=== PATIENT | male | born 1955 | race Caucasian/White ===

== ENCOUNTER 2021-01-23 17:27 | Emergency (ER) | payer MEDICARE, OTHER ==
[2021-01-23] MEDS ORDERED: Sodium Chloride 0.9% 1000 ML 1,000 ML IV STA ×2 (18:07→20:07)
[2021-01-23] MEDS ORDERED: Sodium Chloride 0.9% 1000 ML 1,000 ML ONE ×2 (18:13→20:35)
[2021-01-23 18:22] LABS: Absolute Neutrophil Ct (ANC) 5.68 (1.4-6.9); BASOPHIL % 0.4 % (0.0-0.4); Basophil (Absolute #) 0.03 (0-0.4); Eosinophil % 0.8 % (0.00-5.0); Eosinophil (Absolute #) 0.07 (0-0.5); Hematocrit 45.1 % (42-50); Hemoglobin 15.2 gm/dl (12.5-18.0); Lymphocytes % 22.3 % (24.0-44.0); Mean Cell Volume 79.3 fl (78-100); Mean Corpuscular Hemoglobin 26.7 pg (26-32); Mean Corpuscular Hgb Concent. 33.7 g/dl (32-36); Mean Platelet Volume 10.8 fl (7.5-11.0); Monocyte (Absolute #) 0.85 (0.0-1.3); Neutrophil % 66.5 % (36.0-66.0); Platelet Count 278 K/mm3 (150-450); Red Blood Count 5.69 M/mm3 (4.1-5.6); Red Cell Distribution Width 13.4 % (11.5-14.0); White Blood Count 8.5 K/mm3 (4.0-10.5)
[2021-01-23 18:35] LABS: ALBUMIN 4.4 g/dL (3.5-5.0); ALKALINE PHOSPHATASE 128 U/L (38-126); BLOOD UREA NITROGEN 23 mg/dL (9-20); CHLORIDE 95 mmol/L (98-107); Calcium 9.9 mg/dL (8.4-10.2); Carbon Dioxide 25 mmol/L (22-30); Creatinine 1 0.85 mg/dL (0.66-1.25); EST GLOMERULAR FILTRATION RATE > 60.0 ML/MIN; MAGNESIUM 1.8 mg/dL (1.6-2.3); Potassium 5.1 mmol/L (3.5-5.1); SGOT/AST 29 U/L (17-59); SGPT/ALT 28 U/L (0-50); SODIUM 130 mmol/L (137-145); Total Protein 7.3 g/dL (6.3-8.2)
--- NOTE | 2021-01-23 19:09 | ERPHSYRPT ---
- History of Present Illness Time Seen by Provider: 01/23/21 17:50 Source: patient, family Exam Limitations: no limitations Patient Subjective Stated Complaint: pt here for high blood sugars today, he states he does not feel well. Triage Nursing Assessment: pt alert, walked in, resp easy, skin w/d/p. face mask in place, Physician History: This is a 65-year-old white male who is diabetic and has a history of hypertensi on and presents with complaint of just not feeling well for several days. He also was found to have 554 blood sugar on his Accu-Chek at home. Patient stopped his Trulicity for no reason other than he did not want to take it any longer. He took his other medications this morning. He has not taking any p.m. medications at this time. Patient has no complaints of pain. He denies nausea vomiting or diarrhea. Timing/Duration: today Severity: mild (To moderate) Associated Symptoms: weakness, No nausea, No vomiting, No abdominal pain, No shortness of breath, No chest pain, No fever Allergies/Adverse Reactions: aspirin Allergy (Verified 01/23/21 17:43) codeine Allergy (Verified 01/23/21 17:43) Penicillins Allergy (Verified 01/23/21 17:43) Home Medications: Atorvastatin Calcium [Lipitor 40Mg] 1 ea DAILY 01/23/21 [History] Clopidogrel Bisulfate 75 mg [PLAVIX 75 MG Tablet] 1 ea DAILY 01/23/21 [History] Isosorbide Mononitrate 30 mg [Imdur 30 MG] 1 ea DAILY 01/23/21 [History] Metformin HCl 850 mg [Glucophage 850 MG] 1 ea BID 01/23/21 [History] Pioglitazone 30 mg [Actos 30 MG] 1 ea DAILY 01/23/21 [History] carvediloL [Carvedilol] 1 ea DAILY 01/23/21 [History] Hx Influenza Vaccination/Date Given: Yes Hx Pneumococcal Vaccination/Date Given: Yes Immunizations Up to Date: No Travel Risk - International Travel Have you traveled outside of the country in past 3 weeks: No - Coronavirus Screening Are you exhibiting any of the following symptoms?: No Close contact with a COVID-19 positive Pt in past 14-21 Days: No - Vaccine Status Have you recieved a Covid-19 vaccination: Yes 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 - Review of Systems Constitutional: Weakness Eyes: No Symptoms Ears, Nose, & Throat: No Symptoms Respiratory: No Symptoms Cardiac: No Symptoms Abdominal/Gastrointestinal: No Symptoms Genitourinary Symptoms: No Symptoms Musculoskeletal: No Symptoms Skin: No Symptoms Neurological: No Symptoms Psychological: No Symptoms Endocrine: No Symptoms Hematologic/Lymphatic: No Symptoms Immunological/Allergic: No Symptoms All Other Systems: Reviewed and Negative - Past Medical History Pertinent Past Medical History: Yes Neurological History: Stroke Cardiac History: Coronary Artery Disease, High Cholesterol Endocrine Medical History: Diabetes Type II - Past Surgical History Past Surgical History: No - Social History Smoking Status: Never smoker Exposure to second hand smoke: No Drug Use: none Patient Lives Alone: No - Nursing Vital Signs Nursing Vital Signs: Initial Vital Signs Temperature 97.3 F 01/23/21 17:38 Pulse Rate 93 H 01/23/21 17:38 Respiratory Rate 16 01/23/21 17:38 Blood Pressure 134/97 01/23/21 17:38 O2 Sat by Pulse Oximetry 99 01/23/21 17:38 Pain Scale Pain Intensity 0 - Physical Exam General Appearance: no apparent distress, alert Eye Exam: PERRL/EOMI, eyes nml inspection Ears, Nose, Throat Exam: normal ENT inspection, moist mucous membranes Neck Exam: normal inspection, non-tender, supple, full range of motion Respiratory Exam: normal breath sounds, lungs clear, airway intact, No chest tenderness, No respiratory distress Cardiovascular Exam: regular rate/rhythm, normal heart sounds, normal peripheral pulses Gastrointestinal/Abdomen Exam: soft, normal bowel sounds, No tenderness Rectal Exam: not done Back Exam: normal inspection, normal range of motion, No CVA tenderness, No vertebral tenderness Extremity Exam: normal inspection, normal range of motion, pelvis stable Neurologic Exam: alert, oriented x 3, cooperative, inspector final assembly mechanical II-XII nml as tested, n ormal mood/affect, nml cerebellar function, nml station & gait, sensation nml Skin Exam: normal color, warm, dry Lymphatic Exam: No adenopathy SpO2 Interpretation: normal SpO2: 99 O2 Delivery: Room Air - Course Nursing assessment & vital signs reviewed: Yes EKG Interpreted by Me: RATE (78), Sinus Rhythm, NORMAL AXIS, NORMAL INTERVALS, NORMAL QRS, NORMAL ST-T, Other (No acute ischemic changes on today's EKG. No comparison EKG available.) Ordered Tests: Active Orders 24 hr Category Date Time Status EKG-ER Only STAT Care 01/23/21 18:10 Active IV Insertion STAT Care 01/23/21 18:07 Active Pulse Oximetry (ED) STAT Care 01/23/21 18:07 Active CBC W DIFF Stat Lab 01/23/21 18:07 Completed CMP Stat Lab 01/23/21 18:20 Completed Lactic Acid Urgent Lab 01/23/21 18:20 Completed MAGNESIUM Stat Lab 01/23/21 18:20 Completed POCT GLUCOSE Stat Lab 01/23/21 17:38 Completed POCT GLUCOSE Stat Lab 01/23/21 19:25 Completed POCT GLUCOSE Stat Lab 01/23/21 22:09 Completed TROPONIN Q3H Lab 01/23/21 18:20 Completed TROPONIN Q3H Lab 01/23/21 20:55 Completed TROPONIN Q3H Lab 01/24/21 00:15 Ordered TROPONIN Q3H Lab 01/24/21 03:15 Ordered TROPONIN Q3H Lab 01/24/21 06:15 Ordered UA W/RFX UR CULTURE Stat Lab 01/23/21 18:20 Completed Medication Summary Discontinued Medications Generic Name Dose Route Start Last Admin Trade Name Freq PRN Reason Stop Dose Admin Sodium Chloride 1,000 mls @ 999 mls/hr 01/23/21 18:07 01/23/21 19:22 Sodium Chloride 0.9% 1000 Ml IV 01/23/21 19:07 Infused .Q1H1M STA Infusion Sodium Chloride Confirm 01/23/21 18:13 Sodium Chloride 0.9% 1000 Ml Administered 01/23/21 18:14 Dose 1,000 mls @ ud .ROUTE .STK-MED ONE Sodium Chloride 1,000 mls @ 999 mls/hr 01/23/21 20:07 01/23/21 20:37 Sodium Chloride 0.9% 1000 Ml IV 01/23/21 21:07 999 mls/hr .Q1H1M STA Administration Sodium Chloride Confirm 01/23/21 20:35 Sodium Chloride 0.9% 1000 Ml Administered 01/23/21 20:36 Dose 1,000 mls @ ud .ROUTE .STK-MED ONE Insulin Human Regular 6 unit 01/23/21 19:27 01/23/21 21:42 Humulin R IV 01/23/21 19:28 6 unit STAT ONE Administration Insulin Human Regular Confirm 01/23/21 21:37 Humulin R Administered 01/23/21 21:38 Dose 6 unit .ROUTE .STK-MED ONE Lab/Rad Data: Laboratory Result Diagrams 01/23/21 18:07 01/23/21 18:20 Laboratory Results 01/23/21 01/23/21 01/23/21 Range/Units 22:09 20:55 19:25 WBC (4.0-10.5) K/mm3 RBC (4.1-5.6) M/mm3 Hgb (12.5-18.0) gm/dl Hct (42-50) % MCV (78-100) fl MCH (26-32) pg MCHC (32-36) g/dl RDW (11.5-14.0) % Plt Count (150-450) K/mm3 MPV (7.5-11.0) fl Gran % (36.0-66.0) % Eos # (Auto) (0-0.5) Absolute Lymphs (auto) (1.0-4.6) Absolute Monos (auto) (0.0-1.3) Lymphocytes % (24.0-44.0) % Monocytes % (0.0-12.0) % Eosinophils % (0.00-5.0) % Basophils % (0.0-0.4) % Absolute Granulocytes (1.4-6.9) Basophils # (0-0.4) Sodium (137-145) mmol/L Potassium (3.5-5.1) mmol/L Chloride (98-107) mmol/L Carbon Dioxide (22-30) mmol/L Anion Gap (5-15) MEQ/L BUN (9-20) mg/dL Creatinine (0.66-1.25) mg/dL Estimated GFR ML/MIN Glucose (74-106) mg/dL POC Glucometer 246 H 370 H (74 to 106) mg/dL Lactic Acid (0.4-2.0) Calcium (8.4-10.2) mg/dL Magnesium (1.6-2.3) mg/dL Total Bilirubin (0.2-1.3) mg/dL AST (17-59) U/L ALT (0-50) U/L Alkaline Phosphatase (38-126) U/L Troponin I < 0.012 (0.000-0.034) ng/mL Serum Total Protein (6.3-8.2) g/dL Albumin (3.5-5.0) g/dL Urine Color (YELLOW) Urine Appearance (CLEAR) Urine pH (5-6) Ur Specific Oracle (1.005-1.025) Urine Protein (Negative) Urine Ketones (NEGATIVE) Urine Blood (0-5) Raphael/ul Urine Nitrite (NEGATIVE) Urine Bilirubin (NEGATIVE) Urine Urobilinogen (0-1) mg/dL Ur Leukocyte Esterase (NEGATIVE) Urine WBC (Auto) (0-5) /HPF Urine RBC (Auto) (0-2) /HPF U Epithel Cells (Auto) (FEW) /HPF Urine Bacteria (Auto) (NEGATIVE) /HPF Urine Culture Reflexed (NO) Urine Glucose (NEGATIVE) mg/dL 01/23/21 01/23/21 01/23/21 Range/Units 18:20 18:20 18:20 WBC (4.0-10.5) K/mm3 RBC (4.1-5.6) M/mm3 Hgb (12.5-18.0) gm/dl Hct (42-50) % MCV (78-100) fl MCH (26-32) pg MCHC (32-36) g/dl RDW (11.5-14.0) % Plt Count (150-450) K/mm3 MPV (7.5-11.0) fl Gran % (36.0-66.0) % Eos # (Auto) (0-0.5) Absolute Lymphs (auto) (1.0-4.6) Absolute Monos (auto) (0.0-1.3) Lymphocytes % (24.0-44.0) % Monocytes % (0.0-12.0) % Eosinophils % (0.00-5.0) % Basophils % (0.0-0.4) % Absolute Granulocytes (1.4-6.9) Basophils # (0-0.4) Sodium (137-145) mmol/L Potassium (3.5-5.1) mmol/L Chloride (98-107) mmol/L Carbon Dioxide (22-30) mmol/L Anion Gap (5-15) MEQ/L BUN (9-20) mg/dL Creatinine (0.66-1.25) mg/dL Estimated GFR ML/MIN Glucose (74-106) mg/dL POC Glucometer (74 to 106) mg/dL Lactic Acid 1.6 (0.4-2.0) Calcium (8.4-10.2) mg/dL Magnesium (1.6-2.3) mg/dL Total Bilirubin (0.2-1.3) mg/dL AST (17-59) U/L ALT (0-50) U/L Alkaline Phosphatase (38-126) U/L Troponin I < 0.012 (0.000-0.034) ng/mL Serum Total Protein (6.3-8.2) g/dL Albumin (3.5-5.0) g/dL Urine Color STRAW (YELLOW) Urine Appearance CLEAR (CLEAR) Urine pH 5.0 (5-6) Ur Specific Oracle 1.029 (1.005-1.025) Urine Protein NEGATIVE (Negative) Urine Ketones TRACE (NEGATIVE) Urine Blood NEGATIVE (0-5) Raphael/ul Urine Nitrite NEGATIVE (NEGATIVE) Urine Bilirubin NEGATIVE (NEGATIVE) Urine Urobilinogen NEGATIVE (0-1) mg/dL Ur Leukocyte Esterase NEGATIVE (NEGATIVE) Urine WBC (Auto) NONE (0-5) /HPF Urine RBC (Auto) NONE (0-2) /HPF U Epithel Cells (Auto) NONE (FEW) /HPF Urine Bacteria (Auto) NONE (NEGATIVE) /HPF Urine Culture Reflexed NO (NO) Urine Glucose >=500 (NEGATIVE) mg/dL 01/23/21 01/23/21 01/23/21 Range/Units 18:20 18:07 17:38 WBC 8.5 (4.0-10.5) K/mm3 RBC 5.69 H (4.1-5.6) M/mm3 Hgb 15.2 (12.5-18.0) gm/dl Hct 45.1 (42-50) % MCV 79.3 (78-100) fl MCH 26.7 (26-32) pg MCHC 33.7 (32-36) g/dl RDW 13.4 (11.5-14.0) % Plt Count 278 (150-450) K/mm3 MPV 10.8 (7.5-11.0) fl Gran % 66.5 H (36.0-66.0) % Eos # (Auto) 0.07 (0-0.5) Absolute Lymphs (auto) 1.90 (1.0-4.6) Absolute Monos (auto) 0.85 (0.0-1.3) Lymphocytes % 22.3 L (24.0-44.0) % Monocytes % 10.0 (0.0-12.0) % Eosinophils % 0.8 (0.00-5.0) % Basophils % 0.4 (0.0-0.4) % Absolute Granulocytes 5.68 (1.4-6.9) Basophils # 0.03 (0-0.4) Sodium 130 L (137-145) mmol/L Potassium 5.1 (3.5-5.1) mmol/L Chloride 95 L (98-107) mmol/L Carbon Dioxide 25 (22-30) mmol/L Anion Gap 15.0 (5-15) MEQ/L BUN 23 H (9-20) mg/dL Creatinine 0.85 (0.66-1.25) mg/dL Estimated GFR > 60.0 ML/MIN Glucose 512 H* (74-106) mg/dL POC Glucometer 464 H (74 to 106) mg/dL Lactic Acid (0.4-2.0) Calcium 9.9 (8.4-10.2) mg/dL Magnesium 1.8 (1.6-2.3) mg/dL Total Bilirubin 0.70 (0.2-1.3) mg/dL AST 29 (17-59) U/L ALT 28 (0-50) U/L Alkaline Phosphatase 128 H (38-126) U/L Troponin I (0.000-0.034) ng/mL Serum Total Protein 7.3 (6.3-8.2) g/dL Albumin 4.4 (3.5-5.0) g/dL Urine Color (YELLOW) Urine Appearance (CLEAR) Urine pH (5-6) Ur Specific Oracle (1.005-1.025) Urine Protein (Negative) Urine Ketones (NEGATIVE) Urine Blood (0-5) Raphael/ul Urine Nitrite (NEGATIVE) Urine Bilirubin (NEGATIVE) Urine Urobilinogen (0-1) mg/dL Ur Leukocyte Esterase (NEGATIVE) Urine WBC (Auto) (0-5) /HPF Urine RBC (Auto) (0-2) /HPF U Epithel Cells (Auto) (FEW) /HPF Urine Bacteria (Auto) (NEGATIVE) /HPF Urine Culture Reflexed (NO) Urine Glucose (NEGATIVE) mg/dL - Progress Progress: improved, re-examined Progress Note: 01/23/21 20:52 Patient reexamined. He is feeling better with the IV fluids. We are awaiting his urinalysis. Patient desires to go home. He has no chest pain. He has no shortness of breath. We will recheck his blood sugar prior to his discharge to home. 01/23/21 22:03 Medical decision making: This patient is feeling well. He desires to go home. We will repeat the Accu-Chek to make sure that is blood sugars in the 200-300 range. If that is the case and he is still feeling well. We will discharge him to home. 01/23/21 22:24 Accu-Chek is 246. This is in a reasonable range for discharge to home. Patient desires to go home. He has no chest pain. He has no shortness of breath. He has no abdominal pain. Counseled pt/family regarding: lab results, diagnosis, need for follow-up - Departure Departure Disposition: Home Clinical Impression: Hyperglycemia Condition: Stable Critical Care Time: No Referrals: KENNA CAMERON MD [Primary Care Provider] - Additional Instructions: Drink plenty of fluids monitor your blood sugar closely and provide yourself with insulin coverage as directed by your outpatient physician. Follow-up with your primary care physician on 01/26/2021 for further management. Return to the emergency department if you have symptoms or your blood sugar is significantly elevated.
[2021-01-23 19:19] LABS: Glucose 512 mg/dL (74-106)
[2021-01-23] MEDS ORDERED: HUMULIN R IV ONE (19:27)
[2021-01-23 21:15] LABS: Appearance CLEAR (CLEAR); Bilirubin NEGATIVE (NEGATIVE); Blood NEGATIVE Ery/ul (0-5); Glucose >=500 mg/dL (NEGATIVE); Ketones TRACE (NEGATIVE); Leukocyte Esterase NEGATIVE (NEGATIVE); Nitrite NEGATIVE (NEGATIVE); Protein,Urine Dip NEGATIVE (Negative); Specific Gravity 1.029 (1.005-1.025); Urobilinogen NEGATIVE mg/dL (0-1)
[2021-01-23] MEDS ORDERED: HUMULIN R ONE (21:37)
[2021-01-23 22:57] VITALS: BP 131/85; PULSE 77; O2SAT 98
== END 2021-01-23 22:57 | disposition home or self-care (01) ==
LOC: ED 17:27
DX: E11.65 Type 2 diabetes mellitus with hyperglycemia (principal); I25.10 Atherosclerotic heart disease of native coronary artery without angina pectoris; E78.00 Pure hypercholesterolemia, unspecified; Z79.899 Other long term (current) drug therapy
CPT/HCPCS: 36000; 36415; 80053; 81001; 82947; 83605; 83735; 84484; 85025; 93005; 94760; 96360; 96361; 96374; 99284; J1815

== ENCOUNTER 2021-05-04 11:11 | Observation (INO) | payer MEDICARE ==
[2021-05-04] MEDS ORDERED: Sodium Chloride 0.9% 1000 ML 1,000 ML IV SCH ×3 (11:45→14:00)
--- NOTE | 2021-05-04 11:59 | ERPHSYRPT ---
- History of Present Illness Time Seen by Provider: 05/04/21 11:22 Source: patient Patient Subjective Stated Complaint: spouse reports reduced mental status beginning yesterday approx 0600, states that pt was in the bathroom and did not know what he was doing there and also did not know who his was at that point, states pt was also having increased difficulty walking at that time as well. also reports that pt has recently been tested for covid ( 3wks ago) and treated for URI with Doxycycline. Triage Nursing Assessment: pt is aox3, pupils perrl, afebrile, resps easy and non labored, cap refill < 3 seconds, radial pulses strong and equal, pt with generalized weakness, hand web machine tender strong equal, foot pushes strong equal, no drift noted to upper or lower extremities, face is symmetrical, pt skin pink warm dry. Physician History: Patient is a 65-year-old male presents to our ED with his for evaluation of change in mental status. states symptoms started yesterday approximately 6 AM. She noticed patient was confused and had an abnormal gait. However she felt that this will run its course. states symptoms continued on into today. Patient denies symptoms. No trauma. No fever. He is currently alert and oriented x4. Patient is a diabetic. states that patient has not been compliant with his medications. No nausea or vomiting. No diarrhea. No rash. Patient has a history of a CVA. concerned that patient may have had another CVA. They voiced no other complaints or concerns at this time. Timing/Duration: yesterday Severity: moderate Modifying Factors: Improves With: nothing Associated Symptoms: No nausea, No vomiting, No abdominal pain, No shortness of breath, No diaphoresis, No cough, No chills, No chest pain, No fever, No headaches, No loss of appetite, No malaise, No syncope, No seizure, No weakness Allergies/Adverse Reactions: aspirin Allergy (Verified 05/04/21 11:31) codeine Allergy (Verified 05/04/21 11:31) Penicillins Allergy (Verified 05/04/21 11:31) Home Medications: Atorvastatin Calcium [Lipitor 40Mg] 1 ea DAILY 01/23/21 [History] Clopidogrel Bisulfate 75 mg [PLAVIX 75 MG Tablet] 1 ea DAILY 01/23/21 [History] Isosorbide Mononitrate 30 mg [Imdur 30 MG] 1 ea DAILY 01/23/21 [History] Metformin HCl 850 mg [Glucophage 850 MG] 1 ea BID 01/23/21 [History] Pioglitazone 30 mg [Actos 30 MG] 1 ea DAILY 01/23/21 [History] carvediloL [Carvedilol] 1 ea DAILY 01/23/21 [History] Hx Tetanus, Diphtheria Vaccination/Date Given: Yes Hx Influenza Vaccination/Date Given: Yes Hx Pneumococcal Vaccination/Date Given: Yes Immunizations Up to Date: Yes Travel Risk - International Travel Have you traveled outside of the country in past 3 weeks: No - Coronavirus Screening Are you exhibiting any of the following symptoms?: No Close contact with a COVID-19 positive Pt in past 14-21 Days: No - Vaccine Status Have you recieved a Covid-19 vaccination: Yes [place]: Moderna - Vaccination Dates Date of 2cond Vaccination (if applicable): Comment: approx dates - Review of Systems Constitutional: No Symptoms, No Fever, No Chills Eyes: No Symptoms Ears, Nose, & Throat: No Symptoms Respiratory: No Symptoms, No Cough, No Dyspnea Cardiac: No Symptoms, No Chest Pain, No Edema, No Syncope Abdominal/Gastrointestinal: No Symptoms, No Abdominal Pain, No Nausea, No Vomiting, No Diarrhea Genitourinary Symptoms: No Symptoms, No Dysuria Musculoskeletal: No Symptoms, No Back Pain, No Neck Pain Skin: No Symptoms, No Rash Neurological: No Symptoms, No Dizziness, No Focal Weakness, No Sensory Changes Psychological: No Symptoms Endocrine: No Symptoms Hematologic/Lymphatic: No Symptoms Immunological/Allergic: No Symptoms All Other Systems: Reviewed and Negative - Past Medical History Pertinent Past Medical History: Yes Neurological History: Stroke Cardiac History: Coronary Artery Disease, High Cholesterol Endocrine Medical History: Diabetes Type II - Past Surgical History Past Surgical History: No - Social History Smoking Status: Never smoker Exposure to second hand smoke: No Drug Use: none Patient Lives Alone: No - Nursing Vital Signs Nursing Vital Signs: Initial Vital Signs Temperature 96.9 F 05/04/21 11:17 Pulse Rate 87 05/04/21 11:17 Respiratory Rate 16 05/04/21 11:17 Blood Pressure 170/99 05/04/21 11:17 O2 Sat by Pulse Oximetry 99 05/04/21 11:17 Pain Scale Pain Intensity 0 - Physical Exam General Appearance: no apparent distress, alert Eye Exam: PERRL/EOMI, eyes nml inspection Ears, Nose, Throat Exam: normal ENT inspection, TMs normal, pharynx normal, moist mucous membranes Neck Exam: normal inspection, non-tender, supple, full range of motion Respiratory Exam: normal breath sounds, lungs clear, airway intact, No respiratory distress Cardiovascular Exam: regular rate/rhythm, normal heart sounds, normal peripheral pulses Gastrointestinal/Abdomen Exam: soft, normal bowel sounds, No tenderness, No mass, No ecchymosis Back Exam: normal inspection, normal range of motion, No CVA tenderness, No patricia tebral tenderness Extremity Exam: normal inspection, normal range of motion, pelvis stable Neurologic Exam: alert, oriented x 3, cooperative, normal mood/affect, nml cerebellar function, nml station & gait, sensation nml, No motor deficits Skin Exam: normal color, warm, dry, No rash Lymphatic Exam: No adenopathy SpO2 Interpretation: normal SpO2: 96 O2 Delivery: Room Air - Course Nursing assessment & vital signs reviewed: Yes EKG Interpreted by Me: RATE (85), Sinus Rhythm, NORMAL AXIS, NORMAL INTERVALS - CT Exams Head CT Interpretation: Tele-radiologist Report (Nonacute senile brain old infarct low-attenuation infarct adjacent to the lateral margin of the body of the left lateral ventricle consistent with cardiac nucleus infarct. Pansinusitis) Ordered Tests: Active Orders 24 hr Category Date Time Status Traffic Control Signaler STAT Care 05/04/21 11:40 Active EKG-ER Only STAT Care 05/04/21 11:39 Active IV Insertion STAT Care 05/04/21 11:39 Active POCT Glucose Check STAT Care 05/04/21 11:51 Active Pulse Oximetry (ED) STAT Care 05/04/21 11:39 Active HEAD WITHOUT CONTRAST [CT] Stat Exams 05/04/21 11:40 Completed ABG [ARTERIAL BLOOD GASES] Stat Lab 05/04/21 13:38 Ordered CBC W DIFF Stat Lab 05/04/21 11:50 Completed CMP Stat Lab 05/04/21 11:50 Completed ETHYL ALCOHOL Stat Lab 05/04/21 11:50 Completed POCT GLUCOSE Stat Lab 05/04/21 11:50 Received POCT GLUCOSE Stat Lab 05/04/21 13:38 Completed TROPONIN Q3H Lab 05/04/21 11:50 Completed TROPONIN Q3H Lab 05/04/21 14:45 Ordered TROPONIN Q3H Lab 05/04/21 17:45 Ordered TROPONIN Q3H Lab 05/04/21 20:45 Ordered TROPONIN Q3H Lab 05/04/21 23:45 Ordered TSH, 3RD Generation Stat Lab 05/04/21 11:50 Completed UA W/RFX UR CULTURE Stat Lab 05/04/21 11:50 Completed Urine Triage Profile Stat Lab 05/04/21 11:50 Completed Medication Summary Generic Name Dose Route Start Last Admin Trade Name Freq PRN Reason Stop Dose Admin Sodium Chloride 1,000 mls @ 100 mls/hr 05/04/21 11:45 05/04/21 12:55 Sodium Chloride 0.9% 1000 Ml IV 06/03/21 11:44 Infused .Q10H RAMESH Infusion Sodium Chloride 1,000 mls @ 200 mls/hr 05/04/21 13:45 Sodium Chloride 0.9% 1000 Ml IV 06/03/21 13:44 .Q5H RAMESH Sodium Chloride 1,000 mls @ 200 mls/hr 05/04/21 14:00 Sodium Chloride 0.9% 1000 Ml IV 06/03/21 13:59 .Q5H RAMESH Lab/Rad Data: Laboratory Result Diagrams 05/04/21 11:50 05/04/21 11:50 Laboratory Results 05/04/21 05/04/21 05/04/21 Range/Units 13:38 11:57 11:50 WBC (4.0-10.5) K/mm3 RBC (4.1-5.6) M/mm3 Hgb (12.5-18.0) gm/dl Hct (42-50) % MCV (78-100) fl MCH (26-32) pg MCHC (32-36) g/dl RDW (11.5-14.0) % Plt Count (150-450) K/mm3 MPV (7.5-11.0) fl Gran % (36.0-66.0) % Eos # (Auto) (0-0.5) Absolute Lymphs (auto) (1.0-4.6) Absolute Monos (auto) (0.0-1.3) Lymphocytes % (24.0-44.0) % Monocytes % (0.0-12.0) % Eosinophils % (0.00-5.0) % Basophils % (0.0-0.4) % Absolute Granulocytes (1.4-6.9) Basophils # (0-0.4) Sodium (137-145) mmol/L Potassium (3.5-5.1) mmol/L Chloride (98-107) mmol/L Carbon Dioxide (22-30) mmol/L Anion Gap (5-15) MEQ/L BUN (9-20) mg/dL Creatinine (0.66-1.25) mg/dL Estimated GFR ML/MIN Glucose (74-106) mg/dL POC Glucometer 461 H (74 to 106) mg/dL Calcium (8.4-10.2) mg/dL Total Bilirubin (0.2-1.3) mg/dL AST (17-59) U/L ALT (0-50) U/L Alkaline Phosphatase (38-126) U/L Troponin I < 0.012 (0.000-0.034) ng/mL Serum Total Protein (6.3-8.2) g/dL Albumin (3.5-5.0) g/dL TSH 3rd Generation (0.47-4.68) mIU/L Urine Color (YELLOW) Urine Appearance (CLEAR) Urine pH (5-6) Ur Specific [place] (1.005-1.025) Urine Protein (Negative) Urine Ketones (NEGATIVE) Urine Blood (0-5) Raphael/ul Urine Nitrite (NEGATIVE) Urine Bilirubin (NEGATIVE) Urine Urobilinogen (0-1) mg/dL Ur Leukocyte Esterase (NEGATIVE) Urine WBC (Auto) (0-5) /HPF Urine RBC (Auto) (0-2) /HPF Urine Culture Reflexed (NO) Urine Glucose (NEGATIVE) mg/dL Urine Opiates Level (NEGATIVE) Ur Methadone (NEGATIVE) Urine Barbiturates (NEGATIVE) Ur Phencyclidine (PCP) (NEGATIVE) Urine Amphetamine (NEGATIVE) U Benzodiazepine Level (NEGATIVE) Urine Cocaine (NEGATIVE) Urine Marijuana (THC) (NEGATIVE) Ethyl Alcohol (0-10) mg/dL Influenza Type A Ag NEGATIVE (NEGATIVE) Influenza Type B Ag NEGATIVE (NEGATIVE) RSV (PCR) NEGATIVE (Negative) SARS-CoV-2 (PCR) NEGATIVE (NEGATIVE) 05/04/21 05/04/2121 Range/Units 11:50 11:50 11:50 WBC 9.2 (4.0-10.5) K/mm3 RBC 5.48 (4.1-5.6) M/mm3 Hgb 14.2 (12.5-18.0) gm/dl Hct 43.4 (42-50) % MCV 79.2 (78-100) fl MCH 25.9 L (26-32) pg MCHC 32.7 (32-36) g/dl RDW 12.7 (11.5-14.0) % Plt Count 363 (150-450) K/mm3 MPV 9.9 (7.5-11.0) fl Gran % 68.4 H (36.0-66.0) % Eos # (Auto) 0.06 (0-0.5) Absolute Lymphs (auto) 1.94 (1.0-4.6) Absolute Monos (auto) 0.87 (0.0-1.3) Lymphocytes % 21.1 L (24.0-44.0) % Monocytes % 9.5 (0.0-12.0) % Eosinophils % 0.7 (0.00-5.0) % Basophils % 0.3 (0.0-0.4) % Absolute Granulocytes 6.28 (1.4-6.9) Basophils # 0.03 (0-0.4) Sodium 124 L (137-145) mmol/L Potassium 5.0 (3.5-5.1) mmol/L Chloride 89 L (98-107) mmol/L Carbon Dioxide 27 (22-30) mmol/L Anion Gap 12.8 (5-15) MEQ/L BUN 26 H (9-20) mg/dL Creatinine 0.78 (0.66-1.25) mg/dL Estimated GFR > 60.0 ML/MIN Glucose 658 H* (74-106) mg/dL POC Glucometer (74 to 106) mg/dL Calcium 9.2 (8.4-10.2) mg/dL Total Bilirubin 0.50 (0.2-1.3) mg/dL AST 35 (17-59) U/L ALT 29 (0-50) U/L Alkaline Phosphatase 179 H (38-126) U/L Troponin I (0.000-0.034) ng/mL Serum Total Protein 6.4 (6.3-8.2) g/dL Albumin 3.5 (3.5-5.0) g/dL TSH 3rd Generation 2.790 (0.47-4.68) mIU/L Urine Color (YELLOW) Urine Appearance (CLEAR) Urine pH (5-6) Ur Specific [place] (1.005-1.025) Urine Protein (Negative) Urine Ketones (NEGATIVE) Urine Blood (0-5) Raphael/ul Urine Nitrite (NEGATIVE) Urine Bilirubin (NEGATIVE) Urine Urobilinogen (0-1) mg/dL Ur Leukocyte Esterase (NEGATIVE) Urine WBC (Auto) (0-5) /HPF Urine RBC (Auto) (0-2) /HPF Urine Culture Reflexed (NO) Urine Glucose (NEGATIVE) mg/dL Urine Opiates Level NEGATIVE (NEGATIVE) Ur Methadone NEGATIVE (NEGATIVE) Urine Barbiturates NEGATIVE (NEGATIVE) Ur Phencyclidine (PCP) NEGATIVE (NEGATIVE) Urine Amphetamine NEGATIVE (NEGATIVE) U Benzodiazepine Level NEGATIVE (NEGATIVE) Urine Cocaine NEGATIVE (NEGATIVE) Urine Marijuana (THC) NEGATIVE (NEGATIVE) Ethyl Alcohol < 10 (0-10) mg/dL Influenza Type A Ag (NEGATIVE) Influenza Type B Ag (NEGATIVE) RSV (PCR) (Negative) SARS-CoV-2 (PCR) (NEGATIVE) 05/04/21 Range/Units 11:50 WBC (4.0-10.5) K/mm3 RBC (4.1-5.6) M/mm3 Hgb (12.5-18.0) gm/dl Hct (42-50) % MCV (78-100) fl MCH (26-32) pg MCHC (32-36) g/dl RDW (11.5-14.0) % Plt Count (150-450) K/mm3 MPV (7.5-11.0) fl Gran % (36.0-66.0) % Eos # (Auto) (0-0.5) Absolute Lymphs (auto) (1.0-4.6) Absolute Monos (auto) (0.0-1.3) Lymphocytes % (24.0-44.0) % Monocytes % (0.0-12.0) % Eosinophils % (0.00-5.0) % Basophils % (0.0-0.4) % Absolute Granulocytes (1.4-6.9) Basophils # (0-0.4) Sodium (137-145) mmol/L Potassium (3.5-5.1) mmol/L Chloride (98-107) mmol/L Carbon Dioxide (22-30) mmol/L Anion Gap (5-15) MEQ/L BUN (9-20) mg/dL Creatinine (0.66-1.25) mg/dL Estimated GFR ML/MIN Glucose (74-106) mg/dL POC Glucometer (74 to 106) mg/dL Calcium (8.4-10.2) mg/dL Total Bilirubin (0.2-1.3) mg/dL AST (17-59) U/L ALT (0-50) U/L Alkaline Phosphatase (38-126) U/L Troponin I (0.000-0.034) ng/mL Serum Total Protein (6.3-8.2) g/dL Albumin (3.5-5.0) g/dL TSH 3rd Generation (0.47-4.68) mIU/L Urine Color STRAW (YELLOW) Urine Appearance CLEAR (CLEAR) Urine pH 6.0 (5-6) Ur Specific [place] 1.028 (1.005-1.025) Urine Protein NEGATIVE (Negative) Urine Ketones TRACE (NEGATIVE) Urine Blood NEGATIVE (0-5) Raphael/ul Urine Nitrite NEGATIVE (NEGATIVE) Urine Bilirubin NEGATIVE (NEGATIVE) Urine Urobilinogen NEGATIVE (0-1) mg/dL Ur Leukocyte Esterase NEGATIVE (NEGATIVE) Urine WBC (Auto) NONE (0-5) /HPF Urine RBC (Auto) NONE (0-2) /HPF Urine Culture Reflexed NO (NO) Urine Glucose >=500 (NEGATIVE) mg/dL Urine Opiates Level (NEGATIVE) Ur Methadone (NEGATIVE) Urine Barbiturates (NEGATIVE) Ur Phencyclidine (PCP) (NEGATIVE) Urine Amphetamine (NEGATIVE) U Benzodiazepine Level (NEGATIVE) Urine Cocaine (NEGATIVE) Urine Marijuana (THC) (NEGATIVE) Ethyl Alcohol (0-10) mg/dL Influenza Type A Ag (NEGATIVE) Influenza Type B Ag (NEGATIVE) RSV (PCR) (Negative) SARS-CoV-2 (PCR) (NEGATIVE) - Progress Progress: improved Progress Note: Patient reassessed. He feels well. Work-up reveals hyperglycemia. 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 Serum osmolality ordered. Calculated serum osmolarity is 293. Adjusted serum sodium is 132. Patient received IV fluids. Glucose improved from 6 58-461 Patient will require admission for further evaluation and treatment. Plan of care discussed with patient and . They agree to admission [facility] for further evaluation and treatment. Portions of this note were created with voice recognition technology. There may be grammatical, spelling, punctuation or sound alike errors Discussed with Dr.: Kevin Will see patient in: hospital (observation) Counseled pt/family regarding: lab results, diagnosis, rad results - Departure Departure Disposition: Observation Clinical Impression: Hyperglycemia, Pansinusitis, HHNC (hyperglycemic hyperosmolar nonketotic coma) Condition: Stable Critical Care Time: No
[2021-05-04 12:03] LABS: Absolute Neutrophil Ct (ANC) 6.28 (1.4-6.9); BASOPHIL % 0.3 % (0.0-0.4); Basophil (Absolute #) 0.03 (0-0.4); Eosinophil % 0.7 % (0.00-5.0); Eosinophil (Absolute #) 0.06 (0-0.5); Hematocrit 43.4 % (42-50); Hemoglobin 14.2 gm/dl (12.5-18.0); Lymphocyte (Absolute #) 1.94 (1.0-4.6); Lymphocytes % 21.1 % (24.0-44.0); Mean Cell Volume 79.2 fl (78-100); Mean Corpuscular Hemoglobin 25.9 pg (26-32); Mean Corpuscular Hgb Concent. 32.7 g/dl (32-36); Mean Platelet Volume 9.9 fl (7.5-11.0); Monocyte (Absolute #) 0.87 (0.0-1.3); Monocytes % 9.5 % (0.0-12.0); Neutrophil % 68.4 % (36.0-66.0); Platelet Count 363 K/mm3 (150-450); Red Blood Count 5.48 M/mm3 (4.1-5.6); Red Cell Distribution Width 12.7 % (11.5-14.0); White Blood Count 9.2 K/mm3 (4.0-10.5)
[2021-05-04 12:25] LABS: Glucose 658 mg/dL (74-106)
[2021-05-04 12:43] LABS: INFLUENZA A NEGATIVE (NEGATIVE); INFLUENZA B NEGATIVE (NEGATIVE); RESPIRATORY SYNCTIAL VIRUS NEGATIVE (Negative); SARS-CoV-2 Xpert Express NEGATIVE (NEGATIVE)
[2021-05-04 12:46] LABS: ALBUMIN 3.5 g/dL (3.5-5.0); ALKALINE PHOSPHATASE 179 U/L (38-126); ANION GAP 12.8 MEQ/L (5-15); BLOOD UREA NITROGEN 26 mg/dL (9-20); CHLORIDE 89 mmol/L (98-107); Calcium 9.2 mg/dL (8.4-10.2); Carbon Dioxide 27 mmol/L (22-30); Creatinine 1 0.78 mg/dL (0.66-1.25); EST GLOMERULAR FILTRATION RATE > 60.0 ML/MIN; ETHYL ALCOHOL < 10 mg/dL (0-10); SGOT/AST 35 U/L (17-59); SGPT/ALT 29 U/L (0-50); SODIUM 124 mmol/L (137-145); Total Protein 6.4 g/dL (6.3-8.2)
[2021-05-04 13:13] LABS: Appearance CLEAR (CLEAR); Bilirubin NEGATIVE (NEGATIVE); Blood NEGATIVE Ery/ul (0-5); Glucose >=500 mg/dL (NEGATIVE); Ketones TRACE (NEGATIVE); Leukocyte Esterase NEGATIVE (NEGATIVE); Nitrite NEGATIVE (NEGATIVE); Protein,Urine Dip NEGATIVE (Negative); Specific Gravity 1.028 (1.005-1.025); Urobilinogen NEGATIVE mg/dL (0-1)
--- NOTE | 2021-05-04 13:13 | XRAY ---
Exam: CT of the head without IV contrast from 05/04/2021. CTDI: 53.92 mGy Comparison: None. Indication: 65-year-old male with altered mental status; weakness, patient states that he "hurts all over". Technique: Non-IV contrast axial images were obtained through the brain. Reconstructed coronal and sagittal images were created and reviewed. Findings: Some artifactual streaking is seen within the oral cavity due to dental amalgam. The left lateral ventricle is slightly larger than the right lateral ventricle. I note a low-attenuation density within the left caudate nucleus adjacent to the lateral margin of the body of the left lateral ventricle which is consistent with a focal infarct. This appears to be old because of the slight ipsilateral enlargement of the left lateral ventricle as compared to the right lateral ventricle. I see no acute intracranial bleed or abnormal extra-axial fluid collection. Some subtle subcortical white matter changes are seen within the upper cervical convexities suggesting minor chronic microvascular disease. No other low attenuation infarct is seen. The fourth ventricle is of unremarkable size and is midline. The cortical sulci and basilar cisterns are normal for age. The calvarium of the skull appears intact. There is significant soft tissue density/mucosal thickening within the right frontal sinus. I also note a lesser amount of mucosal thickening within the inferior left frontal sinus and left frontoethmoid recess. There is significant soft tissue density/mucosal thickening within the right ethmoid sinus, and to a lesser extent, within the left ethmoid sinus. Minor posterior sphenoid sinus mucosal thickening is seen. The right maxillary sinus is completely opacified. The left maxillary sinus reveals mild remaining aeration within the superior medial aspect. Otherwise, the remainder of the left maxillary sinus is opacified as well. These findings are suggestive of pansinusitis which could be chronic and/or acute. Impression: 1. No acute intracranial bleed is seen. 2. There is a focal 1.6 cm x 0.7 cm low attenuation infarct adjacent to the lateral margin of the body of the left lateral ventricle consistent with a caudate nucleus infarct. This is probably old, as the left lateral ventricle is slightly larger than the right lateral ventricle. 3. I also note some subtle subcortical chronic white matter ischemic changes within the upper cerebral convexities. No other low attenuation infarct is seen within a major cerebral or cerebellar artery distribution. 4. Findings consistent with pansinusitis which could be chronic and/or acute. Correlate clinically.
[2021-05-04 13:27] LABS: Amphetamine,Urine NEGATIVE (NEGATIVE); Barbiturate,Urine NEGATIVE (NEGATIVE); Benzodiazepine,Urine NEGATIVE (NEGATIVE); Cocaine,Urine NEGATIVE (NEGATIVE); Methadone,Urine NEGATIVE (NEGATIVE); Opiate,Urine NEGATIVE (NEGATIVE); PCP,Urine NEGATIVE (NEGATIVE); THC,Urine NEGATIVE (NEGATIVE)
[2021-05-04] MEDS ORDERED: Zofran 4 MG/2 ML VIAL IV PRN (14:42)
[2021-05-04 14:43] LABS: A-aADO2 -1; ABG HEMOGLOBIN 14.7; ABG POTASSIUM 4.3 (3.5-5.1); ABG SITE RIGHT RADIAL; ALLEN TEST OK? YES; ARTERIAL BLD GAS O2 SATURATION 98.1 % (95-100); ARTERIAL BLOOD GAS BASE EXCESS 2.3 (-2.0-2.0); ARTERIAL BLOOD GAS FIO2 21 %; ARTERIAL BLOOD GAS PCO2 39 mmHg (35-45); ARTERIAL BLOOD GAS PO2 102 mmHg (75-100); ARTERIAL BLOOD GAS pH 7.44 (7.35-7.45); CARBOXYHEMOGLOBIN 1.1 % THgb (0.0-6.9); HCO3- 26.5 (22-28); HGB O2 SAT 96.5 g/dF (94-100); Methhemoglobin 0.4 % (1.4-1.5)
[2021-05-04] MEDS ORDERED: HUMULIN R SQ SCH (16:30)
[2021-05-04] MEDS: HUMULIN R SQ PRN ×2 (18:06→21:01)
[2021-05-04] MEDS: Coreg 6.25 MG PO SCH (21:38)
[2021-05-04] MEDS ORDERED: ZOCOR 20MG PO SCH (22:00)
[2021-05-04] MEDS ORDERED: Glucophage 500 MG PO SCH (22:00)
[2021-05-04] MEDS: Sodium Chloride 0.9% 1000 ML 1,000 ML IV SCH (22:47)
[2021-05-05 06:14] LABS: Hematocrit 38.9 % (42-50); Hemoglobin 12.8 gm/dl (12.5-18.0); Mean Cell Volume 78.7 fl (78-100); Mean Corpuscular Hemoglobin 25.9 pg (26-32); Mean Corpuscular Hgb Concent. 32.9 g/dl (32-36); Mean Platelet Volume 9.9 fl (7.5-11.0); Platelet Count 373 K/mm3 (150-450); Red Blood Count 4.94 M/mm3 (4.1-5.6); Red Cell Distribution Width 12.8 % (11.5-14.0); White Blood Count 10.4 K/mm3 (4.0-10.5)
[2021-05-05 06:30] LABS: ALBUMIN 3.2 g/dL (3.5-5.0); ALKALINE PHOSPHATASE 124 U/L (38-126); ANION GAP 9.2 MEQ/L (5-15); BLOOD UREA NITROGEN 16 mg/dL (9-20); CHLORIDE 99 mmol/L (98-107); Calcium 8.6 mg/dL (8.4-10.2); Carbon Dioxide 27 mmol/L (22-30); Creatinine 1 0.74 mg/dL (0.66-1.25); EST GLOMERULAR FILTRATION RATE > 60.0 ML/MIN; Glucose 158 mg/dL (74-106); Potassium 3.7 mmol/L (3.5-5.1); SGOT/AST 23 U/L (17-59); SGPT/ALT 23 U/L (0-50); SODIUM 131 mmol/L (137-145); Total Protein 6.2 g/dL (6.3-8.2)
[2021-05-05 07:04] LABS: ATYPICAL LYMPHS 1 %; Eosinophil 1 % (0.00-3.0); Lymphocytes 26 % (24-44); Monocyte 6 % (0.0-12.0); Neutrophils 66 % (36.-66.); Total Cells Counted 100
[2021-05-05 07:05] LABS: Platelet Estimate NORMAL (NORMAL)
[2021-05-05] MEDS: Sodium Chloride 0.9% 1000 ML 1,000 ML IV SCH (08:00)
[2021-05-05] MEDS: Glucophage 500 MG PO SCH ×2 (08:26→17:25)
[2021-05-05] MEDS: HUMULIN R SQ SCH ×3 (08:28→17:27)
[2021-05-05] MEDS: HUMULIN R SQ PRN ×3 (08:29→17:28)
[2021-05-05] MEDS ORDERED: Actos 30 MG PO SCH (10:00)
[2021-05-05] MEDS ORDERED: Imdur 30 MG PO SCH (10:00)
[2021-05-05] MEDS ORDERED: PLAVIX 75 MG Tablet PO SCH (10:00)
[2021-05-05] MEDS: Coreg 6.25 MG PO SCH (10:27)
[2021-05-05 12:19] VITALS: O2SAT 96
--- NOTE | 2021-05-05 14:06 | PCM.DCORD ---
- Discharge Disposition: Home, Self-Care Condition: Good Prescriptions: New Insulin Regular, Human [Humulin R] See Protocol SQ UD PRN #30 unit PRN Reason: Hyperglycemia Continue carvediloL [Carvedilol] 6.25 mg PO BID Pioglitazone 30 mg [Actos 30 MG] 30 mg PO DAILY Metformin HCl 850 mg [Glucophage 850 MG] 1,000 mg PO BID Isosorbide Mononitrate 30 mg [Imdur 30 MG] 30 mg PO DAILY Clopidogrel Bisulfate 75 mg [PLAVIX 75 MG Tablet] 75 mg PO DAILY Atorvastatin Calcium [Lipitor 40Mg] 40 mg PO HS Insulin Regular, Human [Novolin R] 10 unit SQ AC Additional Instructions: OUTPATIENT TESTING [facility] - Tuesday05/11/21 at 8:45AM for testing : EEG (brain wave test) then MRI Brain no contrast NO DRIVING-patient and aware and voiced understanding Follow up with: KENNA CAMERON MD [Primary Care Provider] - 05/05/21 10:00 am
[2021-05-05 17:20] VITALS: BP 134/87; PULSE 91
--- NOTE | 2021-05-05 18:39 | PCM.SSS ---
History of Present Illness - Chief Complaint Chief Complaint: hyperglycemia, HHN, AMS History of Present Illness: is a 65 year old male patient of Dr Kenna Carolina of [place], [place]. who Presented to ER with AMS and glucose 658,sodium= 124. PMHx IDDM2,CAD,Hx CVA ,is on Plavix. States he had right sided weakness at time of CVA but all has resolved. states patient has hasd spells of confusion/ dioriented even had urinated in the closet. When spell passes ,he is oriented and appropriate again. Patient states he used to see Dr Cheryl Rees for DM but stopped seeing her when she served icecream and chocolates at a celebration meeting. He stopped taking his meds because when he sees the PHYSICIAN ASST she tells him one thing and then Dr Carolina tells him something else re his diabetic meds.. - Review of Systems Constitutional: No Symptoms Eyes: Eye Pain (behind right eye- states," I saw the eye doctor and was told it is not my eye".) Ears, Nose, & Throat: Sinus Drainage Respiratory: No Symptoms Cardiac: No Symptoms Abdominal/Gastrointestinal: No Symptoms Genitourinary Symptoms: Frequency, Other Musculoskeletal: No Symptoms Skin: No Symptoms Neurological: Other (spells of confusion) Endocrine: Polyuria, Polydipsia (drinks a few gallons or more of water a day) Hematologic/Lymphatic: Other (on Plavix) Medications & Allergies Home Medications: Home Medication List Atorvastatin Calcium [Lipitor 40Mg] 40 mg PO HS 01/23/21 [History Confirmed 05/04/21] Clopidogrel Bisulfate 75 mg [PLAVIX 75 MG Tablet] 75 mg PO DAILY 01/23/21 [History Confirmed 05/04/21] Isosorbide Mononitrate 30 mg [Imdur 30 MG] 30 mg PO DAILY 01/23/21 [History Confirmed 05/04/21] Metformin HCl 850 mg [Glucophage 850 MG] 1,000 mg PO BID 01/23/21 [History Confirmed 05/04/21] carvediloL [Carvedilol] 6.25 mg PO BID 01/23/21 [History Confirmed 05/04/21] Insulin Regular, Human [Novolin R] 10 unit SQ AC 05/04/21 [History Confirmed 05/04/21] Insulin Regular, Human [Humulin R] See Protocol SQ UD PRN #30 unit 05/05/21 [Rx] Allergies/Adverse Reactions: Allergies Allergy/AdvReac Type Severity Reaction Status Date / Time aspirin Allergy Severe Anaphylactic Verified 05/04/21 14:51 Reaction codeine Allergy Severe Anaphylactic Verified 05/04/21 14:51 Reaction Penicillins Allergy Severe Anaphylactic Verified 05/04/21 14:51 Reaction Sulfa (Sulfonamide Allergy Severe Anaphylactic Verified 05/04/21 14:51 Antibiotics) Reaction - Past Medical History Past Medical History: Yes Neurological History: Stroke Cardiac History: Coronary Artery Disease, High Cholesterol Endocrine Medical History: Diabetes Type II Musculoskelatal History: No Pertinent History GI Medical History: No Pertinent History History: No Pertinent History Pyscho-Social History: No Pertinent History Male Reproductive Disorders: No Pertinent History - Past Surgical History Past Surgical History: No Neuro Surgical History: No Pertinent History Cardiac History: No Pertinent History Respiratory Surgery: No Pertinent History GI Surgical History: No Pertinent History Genitourinary Surgical Hx: No Pertinent History Musculskeletal Surgical Hx: No Pertinent History Male Surgical History: No Pertinent History Other Surgical History: SHOULDER SURGERY, KIDNEY STONES - Social History Smoking Status: Never smoker Exposure to second hand smoke: No Alcohol: None Drug Use: none - Physical Exam Vital Signs: Vital Signs - 24 hr Temp Pulse Resp BP Pulse Ox 05/05/21 16:00 97.2 F 91 H 134/87 96 05/05/21 12:00 96.5 F 103 H 24 112/68 96 05/05/21 07:45 96.6 F 85 15 132/77 98 05/05/21 04:00 97.3 F 79 18 136/73 96 05/05/21 00:00 97.3 F 68 18 104/62 96 05/04/21 19:15 97.3 F 93 H 18 125/81 97 General Appearance: anxiety (wants to leave becuase he does not rest in the hospital bed) Neurologic Exam: alert, oriented x 3, nml station & gait, agitation Eye Exam: eyes nml inspection, other (tender maxillary sinus right) Ears, Nose, Throat Exam: moist mucous membranes Neck Exam: normal inspection Respiratory Exam: normal breath sounds Cardiovascular Exam: regular rate/rhythm Gastrointestinal/Abdomen Exam: soft (nontender) Rectal Exam: deferred Back Exam: other (no CVA tenderness) Extremity Exam: normal inspection Skin Exam: normal color, warm, dry Results - Labs Lab/Micro Results: Lab Results-Last 24 Hours 05/04/21 05/04/21 05/04/21 Range/Units 17:45 20:30 20:42 WBC (4.0-10.5) K/mm3 RBC (4.1-5.6) M/mm3 Hgb (12.5-18.0) gm/dl Hct (42-50) % MCV (78-100) fl MCH (26-32) pg MCHC (32-36) g/dl RDW (11.5-14.0) % Plt Count (150-450) K/mm3 MPV (7.5-11.0) fl Segmented Neutrophils (36.-66.) % Lymphocytes (Manual) (24-44) % Monocytes (Manual) (0.0-12.0) % Eosinophils (Manual) (0.00-3.0) % Atypical Lymphocytes % Platelet Estimate (NORMAL) RBC Morphology Sodium (137-145) mmol/L Potassium (3.5-5.1) mmol/L Chloride (98-107) mmol/L Carbon Dioxide (22-30) mmol/L Anion Gap (5-15) MEQ/L BUN (9-20) mg/dL Creatinine (0.66-1.25) mg/dL Estimated GFR ML/MIN Glucose (74-106) mg/dL POC Glucometer 377 H (74 to 106) mg/dL Hemoglobin A1c (4.5-6.0) % Calcium (8.4-10.2) mg/dL Total Bilirubin (0.2-1.3) mg/dL AST (17-59) U/L ALT (0-50) U/L Alkaline Phosphatase (38-126) U/L Troponin I < 0.012 < 0.012 (0.000-0.034) ng/mL Serum Total Protein (6.3-8.2) g/dL Albumin (3.5-5.0) g/dL 05/05/21 05/05/21 05/05/21 Range/Units 01:05 05:07 05:20 WBC 10.4 (4.0-10.5) K/mm3 RBC 4.94 (4.1-5.6) M/mm3 Hgb 12.8 (12.5-18.0) gm/dl Hct 38.9 L (42-50) % MCV 78.7 (78-100) fl MCH 25.9 L (26-32) pg MCHC 32.9 (32-36) g/dl RDW 12.8 (11.5-14.0) % Plt Count 373 (150-450) K/mm3 MPV 9.9 (7.5-11.0) fl Segmented Neutrophils 66 (36.-66.) % Lymphocytes (Manual) 26 (24-44) % Monocytes (Manual) 6 (0.0-12.0) % Eosinophils (Manual) 1 (0.00-3.0) % Atypical Lymphocytes 1 % Platelet Estimate NORMAL (NORMAL) RBC Morphology NORMAL Sodium (137-145) mmol/L Potassium (3.5-5.1) mmol/L Chloride (98-107) mmol/L Carbon Dioxide (22-30) mmol/L Anion Gap (5-15) MEQ/L BUN (9-20) mg/dL Creatinine (0.66-1.25) mg/dL Estimated GFR ML/MIN Glucose (74-106) mg/dL POC Glucometer 123 H 160 H (74 to 106) mg/dL Hemoglobin A1c (4.5-6.0) % Calcium (8.4-10.2) mg/dL Total Bilirubin (0.2-1.3) mg/dL AST (17-59) U/L ALT (0-50) U/L Alkaline Phosphatase (38-126) U/L Troponin I (0.000-0.034) ng/mL Serum Total Protein (6.3-8.2) g/dL Albumin (3.5-5.0) g/dL 05/05/21 05/05/21 05/05/21 Range/Units 05:20 08:17 08:30 WBC (4.0-10.5) K/mm3 RBC (4.1-5.6) M/mm3 Hgb (12.5-18.0) gm/dl Hct (42-50) % MCV (78-100) fl MCH (26-32) pg MCHC (32-36) g/dl RDW (11.5-14.0) % Plt Count (150-450) K/mm3 MPV (7.5-11.0) fl Segmented Neutrophils (36.-66.) % Lymphocytes (Manual) (24-44) % Monocytes (Manual) (0.0-12.0) % Eosinophils (Manual) (0.00-3.0) % Atypical Lymphocytes % Platelet Estimate (NORMAL) RBC Morphology Sodium 131 L D (137-145) mmol/L Potassium 3.7 D (3.5-5.1) mmol/L Chloride 99 (98-107) mmol/L Carbon Dioxide 27 (22-30) mmol/L Anion Gap 9.2 (5-15) MEQ/L BUN 16 (9-20) mg/dL Creatinine 0.74 (0.66-1.25) mg/dL Estimated GFR > 60.0 ML/MIN Glucose 158 H (74-106) mg/dL POC Glucometer 191 H (74 to 106) mg/dL Hemoglobin A1c > 14.00 H (4.5-6.0) % Calcium 8.6 (8.4-10.2) mg/dL Total Bilirubin 0.40 (0.2-1.3) mg/dL AST 23 (17-59) U/L ALT 23 (0-50) U/L Alkaline Phosphatase 124 (38-126) U/L Troponin I (0.000-0.034) ng/mL Serum Total Protein 6.2 L (6.3-8.2) g/dL Albumin 3.2 L (3.5-5.0) g/dL 05/05/21 05/05/21 Range/Units 12:02 15:53 WBC (4.0-10.5) K/mm3 RBC (4.1-5.6) M/mm3 Hgb (12.5-18.0) gm/dl Hct (42-50) % MCV (78-100) fl MCH (26-32) pg MCHC (32-36) g/dl RDW (11.5-14.0) % Plt Count (150-450) K/mm3 MPV (7.5-11.0) fl Segmented Neutrophils (36.-66.) % Lymphocytes (Manual) (24-44) % Monocytes (Manual) (0.0-12.0) % Eosinophils (Manual) (0.00-3.0) % Atypical Lymphocytes % Platelet Estimate (NORMAL) RBC Morphology Sodium (137-145) mmol/L Potassium (3.5-5.1) mmol/L Chloride (98-107) mmol/L Carbon Dioxide (22-30) mmol/L Anion Gap (5-15) MEQ/L BUN (9-20) mg/dL Creatinine (0.66-1.25) mg/dL Estimated GFR ML/MIN Glucose (74-106) mg/dL POC Glucometer 322 H 220 H (74 to 106) mg/dL Hemoglobin A1c (4.5-6.0) % Calcium (8.4-10.2) mg/dL Total Bilirubin (0.2-1.3) mg/dL AST (17-59) U/L ALT (0-50) U/L Alkaline Phosphatase (38-126) U/L Troponin I (0.000-0.034) ng/mL Serum Total Protein (6.3-8.2) g/dL Albumin (3.5-5.0) g/dL Accuchecks Date 05/05/21 Date 05/05/21 Date 05/05/21 Date 05/05/21 Date 05/05/21 Date 05/05/21 Date 05/04/21 Time 15:50 Time 12:00 Time 08:20 Time 05:14 Time 05:16 Time 01:18 Time 21:10 - Radiology Impressions Radiology Exams & Impressions: Radiology Procedures Category Date Time Status HEAD WITHOUT CONTRAST [CT] Stat Exams 05/04/21 11:40 Completed Assessment/Plan (1) Hyperglycemia Status: Resolved Assessment & Plan: see med list and discharge instructions Code(s): R73.9 - HYPERGLYCEMIA, UNSPECIFIED (2) Pansinusitis Status: Acute Qualifiers: Chronicity: subacute Qualified Code(s): J01.40 - Acute pansinusitis, unspecified Assessment & Plan: follow with PCP ,OTC Flonase Code(s): J32.4 - CHRONIC PANSINUSITIS (3) DM2 (diabetes mellitus, type 2) Status: Chronic Qualifiers: Diabetes mellitus intermediate insulin use: with intermediate use Diabetes mellitus complication status: with hyperglycemia Qualified Code(s): E11.65 - Type 2 diabetes mellitus with hyperglycemia; Z79.4 - MCFP (current) use of insulin (4) AMS (altered mental status) Status: Acute Qualifiers: Altered mental status type: transient alteration of awareness Qualified Code(s): R40.4 - Transient alteration of awareness Assessment & Plan: possible partial seizures-see Teleneuro viast ,MRI brain and EEG scheduled. follow with PCP Code(s): R41.82 - ALTERED MENTAL STATUS, UNSPECIFIED (5) CVA (cerebral vascular accident) Status: Resolved Assessment & Plan: resolved remote right sided weakness Code(s): I63.9 - CEREBRAL INFARCTION, UNSPECIFIED (6) CAD (coronary artery disease) Status: Chronic Assessment & Plan: stop ACTOS Code(s): I25.10 - ATHSCL HEART DISEASE OF [place] CORONARY ARTERY W/O [facility] Summary - Hospital Course Hospital Course: Patient was admitted from ER for treatment of hyperglycemia and electrolyte imbalance and observation of c/o AMS per . Patient was hydrated and monitored/ treated on moderate dose sliding scale of regular insulin. He ate full meals and was given 10 units insulin at mealtime plus sliding scale scale but no basal insulin. Sugars gradually came down from 600 to 120s . His was present and getting ready to discharge home when patient had awoken from a nap and did not know where he was,he did not recognize his . Teleneuro visit was obtained and appreciated . Neurologist believes patient may be having parti al seizures which can happen post CVA. Patient refused to stay over for MRI of brain and EEG as ordered so he discharged home to come back for this testing as an outpatient. He and his were instructed patient is not to drive until released by his PCP after completed workup. He will follow with Dr Kenna Carolina and community health regular follow up with his doctor and not the PHYSICIAN ASST for his diabetes. MRI of brain and EEG will be sent to Dr Carolina. - Vitals & Intake/Output Vital Signs: Vital Signs Temperature 97.2 F 05/05/21 16:00 Pulse Rate 91 H 05/05/21 16:00 Respiratory Rate 24 05/05/21 12:00 Blood Pressure 134/87 05/05/21 16:00 O2 Sat by Pulse Oximetry 96 05/05/21 16:00 Intake & Output: Intake & Output 05/03/21 05/04/21 05/05/21 05/06/21 11:59 11:59 11:59 11:59 Intake Total 2838 820 Output Total 500 300 Balance 2338 520 Weight 74.843 kg 80 kg - Lab Result Diagrams: 05/05/21 05:20 05/05/21 05:20 Lab Results-Last 24 Hrs: Lab Results-Last 24 Hours 05/04/21 05/04/21 05/04/21 Range/Units 17:45 20:30 20:42 WBC (4.0-10.5) K/mm3 RBC (4.1-5.6) M/mm3 Hgb (12.5-18.0) gm/dl Hct (42-50) % MCV (78-100) fl MCH (26-32) pg MCHC (32-36) g/dl RDW (11.5-14.0) % Plt Count (150-450) K/mm3 MPV (7.5-11.0) fl Segmented Neutrophils (36.-66.) % Lymphocytes (Manual) (24-44) % Monocytes (Manual) (0.0-12.0) % Eosinophils (Manual) (0.00-3.0) % Atypical Lymphocytes % Platelet Estimate (NORMAL) RBC Morphology Sodium (137-145) mmol/L Potassium (3.5-5.1) mmol/L Chloride (98-107) mmol/L Carbon Dioxide (22-30) mmol/L Anion Gap (5-15) MEQ/L BUN (9-20) mg/dL Creatinine (0.66-1.25) mg/dL Estimated GFR ML/MIN Glucose (74-106) mg/dL POC Glucometer 377 H (74 to 106) mg/dL Hemoglobin A1c (4.5-6.0) % Calcium (8.4-10.2) mg/dL Total Bilirubin (0.2-1.3) mg/dL AST (17-59) U/L ALT (0-50) U/L Alkaline Phosphatase (38-126) U/L Troponin I < 0.012 < 0.012 (0.000-0.034) ng/mL Serum Total Protein (6.3-8.2) g/dL Albumin (3.5-5.0) g/dL 05/05/21 05/05/21 05/05/21 Range/Units 01:05 05:07 05:20 WBC 10.4 (4.0-10.5) K/mm3 RBC 4.94 (4.1-5.6) M/mm3 Hgb 12.8 (12.5-18.0) gm/dl Hct 38.9 L (42-50) % MCV 78.7 (78-100) fl MCH 25.9 L (26-32) pg MCHC 32.9 (32-36) g/dl RDW 12.8 (11.5-14.0) % Plt Count 373 (150-450) K/mm3 MPV 9.9 (7.5-11.0) fl Segmented Neutrophils 66 (36.-66.) % Lymphocytes (Manual) 26 (24-44) % Monocytes (Manual) 6 (0.0-12.0) % Eosinophils (Manual) 1 (0.00-3.0) % Atypical Lymphocytes 1 % Platelet Estimate NORMAL (NORMAL) RBC Morphology NORMAL Sodium (137-145) mmol/L Potassium (3.5-5.1) mmol/L Chloride (98-107) mmol/L Carbon Dioxide (22-30) mmol/L Anion Gap (5-15) MEQ/L BUN (9-20) mg/dL Creatinine (0.66-1.25) mg/dL Estimated GFR ML/MIN Glucose (74-106) mg/dL POC Glucometer 123 H 160 H (74 to 106) mg/dL Hemoglobin A1c (4.5-6.0) % Calcium (8.4-10.2) mg/dL Total Bilirubin (0.2-1.3) mg/dL AST (17-59) U/L ALT (0-50) U/L Alkaline Phosphatase (38-126) U/L Troponin I (0.000-0.034) ng/mL Serum Total Protein (6.3-8.2) g/dL Albumin (3.5-5.0) g/dL 05/05/21 05/05/21 05/05/21 Range/Units 05:20 08:17 08:30 WBC (4.0-10.5) K/mm3 RBC (4.1-5.6) M/mm3 Hgb (12.5-18.0) gm/dl Hct (42-50) % MCV (78-100) fl MCH (26-32) pg MCHC (32-36) g/dl RDW (11.5-14.0) % Plt Count (150-450) K/mm3 MPV (7.5-11.0) fl Segmented Neutrophils (36.-66.) % Lymphocytes (Manual) (24-44) % Monocytes (Manual) (0.0-12.0) % Eosinophils (Manual) (0.00-3.0) % Atypical Lymphocytes % Platelet Estimate (NORMAL) RBC Morphology Sodium 131 L D (137-145) mmol/L Potassium 3.7 D (3.5-5.1) mmol/L Chloride 99 (98-107) mmol/L Carbon Dioxide 27 (22-30) mmol/L Anion Gap 9.2 (5-15) MEQ/L BUN 16 (9-20) mg/dL Creatinine 0.74 (0.66-1.25) mg/dL Estimated GFR > 60.0 ML/MIN Glucose 158 H (74-106) mg/dL POC Glucometer 191 H (74 to 106) mg/dL Hemoglobin A1c > 14.00 H (4.5-6.0) % Calcium 8.6 (8.4-10.2) mg/dL Total Bilirubin 0.40 (0.2-1.3) mg/dL AST 23 (17-59) U/L ALT 23 (0-50) U/L Alkaline Phosphatase 124 (38-126) U/L Troponin I (0.000-0.034) ng/mL Serum Total Protein 6.2 L (6.3-8.2) g/dL Albumin 3.2 L (3.5-5.0) g/dL 05/05/21 05/05/21 Range/Units 12:02 15:53 WBC (4.0-10.5) K/mm3 RBC (4.1-5.6) M/mm3 Hgb (12.5-18.0) gm/dl Hct (42-50) % MCV (78-100) fl MCH (26-32) pg MCHC (32-36) g/dl RDW (11.5-14.0) % Plt Count (150-450) K/mm3 MPV (7.5-11.0) fl Segmented Neutrophils (36.-66.) % Lymphocytes (Manual) (24-44) % Monocytes (Manual) (0.0-12.0) % Eosinophils (Manual) (0.00-3.0) % Atypical Lymphocytes % Platelet Estimate (NORMAL) RBC Morphology Sodium (137-145) mmol/L Potassium (3.5-5.1) mmol/L Chloride (98-107) mmol/L Carbon Dioxide (22-30) mmol/L Anion Gap (5-15) MEQ/L BUN (9-20) mg/dL Creatinine (0.66-1.25) mg/dL Estimated GFR ML/MIN Glucose (74-106) mg/dL POC Glucometer 322 H 220 H (74 to 106) mg/dL Hemoglobin A1c (4.5-6.0) % Calcium (8.4-10.2) mg/dL Total Bilirubin (0.2-1.3) mg/dL AST (17-59) U/L ALT (0-50) U/L Alkaline Phosphatase (38-126) U/L Troponin I (0.000-0.034) ng/mL Serum Total Protein (6.3-8.2) g/dL Albumin (3.5-5.0) g/dL Micro Results-Entire Visit: Accuchecks Date 05/05/21 Date 05/05/21 Date 05/05/21 Date 05/05/21 Date 05/05/21 Date 05/05/21 Date 05/04/21 Time 15:50 Time 12:00 Time 08:20 Time 05:14 Time 05:16 Time 01:18 Time 21:10 - Radiology Exams Ordered Rad Exams-Entire Visit: Radiology Procedures Category Date Time Status HEAD WITHOUT CONTRAST [CT] Stat Exams 05/04/21 11:40 Completed - Discharge Disposition: Home, Self-Care Condition: Good Prescriptions: New Insulin Regular, Human [Humulin R] See Protocol SQ UD PRN #30 unit PRN Reason: Hyperglycemia Continue carvediloL [Carvedilol] 6.25 mg PO BID Metformin HCl 850 mg [Glucophage 850 MG] 1,000 mg PO BID Isosorbide Mononitrate 30 mg [Imdur 30 MG] 30 mg PO DAILY Clopidogrel Bisulfate 75 mg [PLAVIX 75 MG Tablet] 75 mg PO DAILY Atorvastatin Calcium [Lipitor 40Mg] 40 mg PO HS Insulin Regular, Human [Novolin R] 10 unit SQ AC Discontinued Pioglitazone 30 mg [Actos 30 MG] 30 mg PO DAILY Outpatient Orders: MRI BRAIN W/O CONTRAST [MRI] Facility: [facility], Location: RADIOLOGY EEG 41-60 MIN Facility: [facility], Location: RESPIRATORY THERAPY Instructions: Altered Mental Status (DC) Additional Instructions: OUTPATIENT TESTING [facility] - Tuesday05/11/21 at 8:45AM for testing : EEG (brain wave test) then MRI Brain no contrast NO DRIVING-patient and aware and voiced understanding Follow up with: KENNA CAMERON MD [Primary Care Provider] - 05/05/21 10:00 am
== END 2021-05-05 19:05 | disposition home or self-care (01) ==
LOC: ED 11:11 → MED SURG 14:10
PROVIDERS: ADMIT Family Medicine; ATTEND Family Medicine
DX: E11.65 Type 2 diabetes mellitus with hyperglycemia (principal); J32.4 Chronic pansinusitis; J01.40 Acute pansinusitis, unspecified; R41.82 Altered mental status, unspecified; I25.10 Atherosclerotic heart disease of native coronary artery without angina pectoris; E78.5 Hyperlipidemia, unspecified; I10 Essential (primary) hypertension; Z79.4 Long term (current) use of insulin; Z86.73 Personal history of transient ischemic attack (TIA), and cerebral infarction without residual deficits; Z20.828 Contact with and (suspected) exposure to other viral communicable diseases; Z79.899 Other long term (current) drug therapy; Z79.01 Long term (current) use of anticoagulants; R56.9 Unspecified convulsions
CPT/HCPCS: 0241U; 36000; 36415; 36600; 70450; 80053; 80307; 81001; 82375; 82803; 82947; 83036; 83930; 84443; 84484; 85025; 93005; 93041; 93268; 94760; 99285; G0378; G0480; J1815; A9270-GY

== ENCOUNTER 2021-12-26 20:27 | Emergency (ER) | payer MEDICARE ==
[2021-12-26] MEDS ORDERED: Rocephin 1000 MG INJ IM ONE (20:55)
[2021-12-26] MEDS ORDERED: Hydromorphone 1 mg/ml Injection IV ONE (20:56)
[2021-12-26] MEDS ORDERED: BENADRYL 50 MG/ML IM ONE (20:56)
[2021-12-26] MEDS ORDERED: Rocephin 1000 MG INJ ONE (20:58)
[2021-12-26 20:59] VITALS: O2SAT 96
[2021-12-26] MEDS ORDERED: BENADRYL 50 MG/ML ONE (21:00)
[2021-12-26] MEDS ORDERED: Hydromorphone 1 mg/ml Injection ONE (21:00)
--- NOTE | 2021-12-26 21:06 | ERPHSYRPT ---
- History of Present Illness Time Seen by Provider: 12/26/21 21:01 Source: patient Patient Subjective Stated Complaint: abscess on right buttock x 2 weeks, continuing to worsen and become more painful Triage Nursing Assessment: Right gluteal cleft abscess present. Skin intact. No drainage noted at this time. 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 Initially he thought it will get better but then the pain started increasing in that area and he started developing a large boil. He denies any fever chills nausea or vomiting. He has a same type of boil couple years ago on his left thigh which required incision and drainage. Patient states that he is diabetic is not properly controlled. He does take insulin but he does not know any other medication he takes. Timing/Duration: week(s) (two weeks) Severity: moderate Associated Symptoms: denies symptoms Allergies/Adverse Reactions: aspirin Allergy (Severe, Verified 12/26/21 20:35) Anaphylactic Reaction codeine Allergy (Severe, Verified 12/26/21 20:35) Anaphylactic Reaction Penicillins Allergy (Severe, Verified 12/26/21 20:35) Anaphylactic Reaction Sulfa (Sulfonamide Antibiotics) Allergy (Severe, Verified 12/26/21 20:35) Anaphylactic Reaction Home Medications: Atorvastatin Calcium [Lipitor 40Mg] 40 mg PO HS 01/23/21 [History] Clopidogrel Bisulfate [PLAVIX Tablet] 75 mg PO DAILY 01/23/21 [History] Isosorbide Mononitrate 30 mg [Imdur 30 MG] 30 mg PO DAILY 01/23/21 [History] Metformin HCl 850 mg [Glucophage 850 MG] 1,000 mg PO BID 01/23/21 [History] carvediloL [Carvedilol] 6.25 mg PO BID 01/23/21 [History] Insulin Regular, Human [Novolin R] 10 unit SQ AC 05/04/21 [History] Hx Tetanus, Diphtheria Vaccination/Date Given: Yes Hx Influenza Vaccination/Date Given: Yes Hx Pneumococcal Vaccination/Date Given: Yes Travel Risk - International Travel Have you traveled outside of the country in past 3 weeks: No - Coronavirus Screening Are you exhibiting any of the following symptoms?: No Close contact with a COVID-19 positive Pt in past 14-21 Days: No - Vaccine Status Have you recieved a Covid-19 vaccination: Yes [employer]: Moderna - Vaccination Dates Date of 2cond Vaccination (if applicable): 07/28/20 - Review of Systems Constitutional: No Fever, No Chills Eyes: No Symptoms Ears, Nose, & Throat: No Symptoms Respiratory: No Cough, No Dyspnea Cardiac: No Chest Pain, No Edema, No Syncope Abdominal/Gastrointestinal: No Abdominal Pain, No Nausea, No Vomiting, No Diarrhea Genitourinary Symptoms: No Dysuria Musculoskeletal: No Back Pain, No Neck Pain Skin: Cellulitis (right gluteal cleft area), No Rash Neurological: No Dizziness, No Focal Weakness, No Sensory Changes Psychological: No Symptoms Endocrine: No Symptoms All Other Systems: Reviewed and Negative - Past Medical History Pertinent Past Medical History: Yes Neurological History: Stroke Cardiac History: Coronary Artery Disease, High Cholesterol Endocrine Medical History: Diabetes Type II Musculoskeletal History: No Pertinent History GI Medical History: No Pertinent History History: No Pertinent History Psycho-Social History: No Pertinent History Male Reproductive Disorders: No Pertinent History - Past Surgical History Past Surgical History: No Neuro Surgical History: No Pertinent History Cardiac: No Pertinent History Respiratory: No Pertinent History Gastrointestinal: No Pertinent History Genitourinary: No Pertinent History Musculoskeletal: No Pertinent History Male Surgical History: No Pertinent History Other Surgical History: SHOULDER SURGERY, KIDNEY STONES - Social History Smoking Status: Never smoker Exposure to second hand smoke: No Drug Use: none Patient Lives Alone: No - Nursing Vital Signs Nursing Vital Signs: Initial Vital Signs Temperature 98.1 F 12/26/21 20:35 Pulse Rate 119 H 12/26/21 20:35 Respiratory Rate 24 12/26/21 20:35 Blood Pressure 190/105 12/26/21 20:35 O2 Sat by Pulse Oximetry 96 12/26/21 20:35 Pain Scale Pain Intensity 7 - Physical Exam General Appearance: mild distress, alert Eye Exam: PERRL/EOMI, eyes nml inspection Ears, Nose, Throat Exam: normal ENT inspection, TMs normal, pharynx normal, moist mucous membranes Neck Exam: normal inspection, non-tender, supple, full range of motion Respiratory Exam: normal breath sounds, lungs clear, No respiratory distress Cardiovascular Exam: regular rate/rhythm, normal heart sounds, normal peripheral pulses Gastrointestinal/Abdomen Exam: soft, normal bowel sounds, No tenderness, No mass Male Genitalia Exam: normal genitalia Rectal Exam: deferred Back Exam: normal inspection, normal range of motion, No CVA tenderness, No vertebral tenderness Extremity Exam: normal inspection, normal range of motion, pelvis stable Neurologic Exam: alert, oriented x 3, cooperative, normal mood/affect, nml cerebellar function, nml station & gait, sensation nml, No motor deficits Skin Exam: normal color, warm, dry, other (abscess around 3 cms in size , redness and warm. No visible head or opening of abscess), No rash Lymphatic Exam: No adenopathy SpO2: 96 - Course Nursing assessment & vital signs reviewed: Yes Ordered Tests: Active Orders 24 hr Category Date Time Status BLOOD CULTURE Stat Lab 12/26/21 21:10 Received CBC W DIFF Stat Lab 12/26/21 21:10 Completed CMP Stat Lab 12/26/21 21:10 Completed Medication Summary Discontinued Medications Generic Name Dose Route Start Last Admin Trade Name Emmy PRN Reason Stop Dose Admin Ceftriaxone Sodium 1,000 mg 12/26/21 20:55 12/26/21 21:03 Ceftriaxone Sodium 1000 Mg Inj Vial IM 12/26/21 20:56 1,000 mg STAT ONE Administration Ceftriaxone Sodium Confirm 12/26/21 20:58 Ceftriaxone Sodium 1000 Mg Inj Vial Administered 12/26/21 20:59 Dose 1,000 mg .ROUTE .STK-MED ONE Diphenhydramine HCl 25 mg 12/26/21 20:56 12/26/21 21:04 Diphenhydramine Hcl 50 Mg/Ml Vial IM 12/26/21 20:57 25 mg STAT ONE Administration Diphenhydramine HCl Confirm 12/26/21 21:00 Diphenhydramine Hcl 50 Mg/Ml Vial Administered 12/26/21 21:01 Dose 50 mg .ROUTE .STK-MED ONE Hydromorphone HCl 0.5 mg 12/26/21 20:56 12/26/21 21:04 Hydromorphone 1 Mg/1ml Inj 1 Mg/Ml Syringe IV 12/26/21 20:57 0.5 mg STAT ONE Administration Hydromorphone HCl Confirm 12/26/21 21:00 Hydromorphone 1 Mg/1ml Inj 1 Mg/Ml Syringe Administered 12/26/21 21:01 Dose 1 mg .ROUTE .STK-MED ONE Insulin Human Regular 30 unit 12/26/21 21:39 Insulin Regular, Human 1 Unit SQ 12/26/21 21:40 ONCE ONE Lab/Rad Data: Laboratory Result Diagrams 12/26/21 21:10 12/26/21 21:10 Laboratory Results 12/26/21 12/26/21 Range/Units 21:10 21:10 WBC 14.7 H (4.0-10.5) x10^3/uL RBC 5.18 (4.1-5.6) x10^6/uL Hgb 14.0 (12.5-18.0) g/dL Hct 40.8 L (42-50) % MCV 78.8 (78-100) fL MCH 27.0 (26-32) pg MCHC 34.3 (32-36) g/dL RDW 12.5 (11.5-14.0) % Plt Count 282 (150-450) x10^3/uL MPV 10.3 (7.5-11.0) fL Gran % 76.7 H (36.0-66.0) % Immature Gran % (Auto) 0.5 H (0.00-0.4) % Nucleat RBC Rel Count 0.0 (0.00-0.1) % Eos # (Auto) 0.03 (0-0.5) x10^3/uL Immature Gran # (Auto) 0.07 H (0.00-0.03) x10^3u/L Absolute Lymphs (auto) 1.54 (1.0-4.6) x10^3/uL Absolute Monos (auto) 1.70 H (0.0-1.3) x10^3/uL Absolute Nucleated RBC 0.00 (0.00-0.01) x10^3u/L Lymphocytes % 10.5 L (24.0-44.0) % Monocytes % 11.6 (0.0-12.0) % Eosinophils % 0.2 (0.00-5.0) % Basophils % 0.5 (0.0-0.4) % Absolute Granulocytes 11.30 H (1.4-6.9) x10^3/uL Basophils # 0.07 (0-0.4) x10^3/uL Sodium 126 L (137-145) mmol/L Potassium 4.6 (3.5-5.1) mmol/L Chloride 91 L (98-107) mmol/L Carbon Dioxide 22 (22-30) mmol/L Anion Gap 17.8 H (5-15) MEQ/L BUN 28 H (9-20) mg/dL Creatinine 1.10 (0.66-1.25) mg/dL Estimated GFR > 60.0 ML/MIN Glucose 535 H* (74-106) mg/dL Calcium 9.7 (8.4-10.2) mg/dL Total Bilirubin 1.20 (0.2-1.3) mg/dL AST 39 (17-59) U/L ALT 30 (0-50) U/L Alkaline Phosphatase 152 H (38-126) U/L Serum Total Protein 7.6 (6.3-8.2) g/dL Albumin 4.2 (3.5-5.0) g/dL - Progress Progress: unchanged Counseled pt/family regarding: lab results, diagnosis, need for follow-up (surgery follow up for Incision and drainage.) - Departure Departure Disposition: Home Clinical Impression: Abscess of gluteal cleft DM2 (diabetes mellitus, type 2) Qualifiers: Diabetes mellitus [employer] insulin use: with longterm use Diabetes mellitus complication status: with skin complications Diabetes mellitus complication detail: with other skin complication Qualified Code(s): E11.628 - Type 2 diabetes mellitus with other skin complications Condition: Stable Critical Care Time: No Referrals: KENNA CAMERON MD [Primary Care Provider] - Follow up/PCP as directed Instructions: MRSA (DC), Cellulitis (Skin Infection), Adult (DC), Wound Infection Additional Instructions: Discharge/Care Plan: Please follow-up with your primary care physician on Tuesday and let them make Of the arrangements for the management of this gluteal abscess. You may require surgical intervention for which your primary care physician can refer you to surgeon. We have sent antibiotic to your pharmacy so please start is tomorrow. If your symptoms get worse or you start running high-grade fever or chills or pain get worse come back to the emergency room. Please give his routine dose insulin as soon as you reach home. NIKOLE PHILLIPS was seen on 12/26/21 in the Emergency Room. The patient was counseled regarding Diagnosis,Lab results, Imaging studies, need for follow up and when to return to the Emergency Room. Prescriptions given: Discharge Note I have spoken with the patient and/or caregivers. I have explained the patient's condition, diagnosis and treatment plan based on the information available to me at this time. I have answered the patient's and/or caregiver's questions and addressed any concerns. The patient and/or caregivers have as good understanding of the patient's diagnosis, condition and treatment plan as can be expected at this point. The vital signs have been stable. The patient's condition is stable and appropriate for discharge from the emergency department. The patient will pursue further outpatient evaluation with the primary care physician or other designated or consulting physician as outlined in the discharge instructions. The patient and/or caregivers are agreeable to this plan of care and follow-up instructions have been explained in detail. The patient and/or caregivers have received these instruction. The patient/and or caregivers are aware that any significant change in condition or worsening of symptoms should prompt an immediate return to this or the closest emergency department or call 911. Prescriptions: Hydrocodone/Acetaminophen [Hydrocodone-Acetamin 10-325 mg] 1 tablet PO Q4H PRN PRN #15 tablet MDD 4 PRN Reason: Moderate To Severe Pain Levofloxacin [Levaquin 500 MG Tablet] 500 mg PO QAM #10 tablet
[2021-12-26 21:15] LABS: Basophil (Absolute #) 0.07 x10^3/uL (0-0.4); Eosinophil % 0.2 % (0.00-5.0); Eosinophil (Absolute #) 0.03 x10^3/uL (0-0.5); Hematocrit 40.8 % (42-50); Lymphocyte (Absolute #) 1.54 x10^3/uL (1.0-4.6); Lymphocytes % 10.5 % (24.0-44.0); Mean Cell Volume 78.8 fL (78-100); Mean Corpuscular Hgb Concent. 34.3 g/dL (32-36); Mean Platelet Volume 10.3 fL (7.5-11.0); Monocytes % 11.6 % (0.0-12.0); Neutrophil % 76.7 % (36.0-66.0); Platelet Count 282 x10^3/uL (150-450); Red Blood Count 5.18 x10^6/uL (4.1-5.6); Red Cell Distribution Width 12.5 % (11.5-14.0); White Blood Count 14.7 x10^3/uL (4.0-10.5)
[2021-12-26 21:23] LABS: ALBUMIN 4.2 g/dL (3.5-5.0); ALKALINE PHOSPHATASE 152 U/L (38-126); ANION GAP 17.8 MEQ/L (5-15); BLOOD UREA NITROGEN 28 mg/dL (9-20); CHLORIDE 91 mmol/L (98-107); Calcium 9.7 mg/dL (8.4-10.2); Carbon Dioxide 22 mmol/L (22-30); EST GLOMERULAR FILTRATION RATE > 60.0 ML/MIN; Potassium 4.6 mmol/L (3.5-5.1); SGOT/AST 39 U/L (17-59); SGPT/ALT 30 U/L (0-50); SODIUM 126 mmol/L (137-145); Total Protein 7.6 g/dL (6.3-8.2)
[2021-12-26 21:31] LABS: Glucose 535 mg/dL (74-106)
[2021-12-26] MEDS ORDERED: HUMULIN R SQ ONE (21:39)
[2021-12-26 22:15] VITALS: BP 133/83; PULSE 118
[2021-12-26 22:57] LABS: Slide Review 1 YES
== END 2021-12-26 21:50 | disposition home or self-care (01) ==
LOC: ED 20:27
DX: L02.31 Cutaneous abscess of buttock (principal); E11.628 Type 2 diabetes mellitus with other skin complications; E11.65 Type 2 diabetes mellitus with hyperglycemia; E78.5 Hyperlipidemia, unspecified; Z79.4 Long term (current) use of insulin; Z79.02 Long term (current) use of antithrombotics/antiplatelets; Z79.84 Long term (current) use of oral hypoglycemic drugs; Z79.899 Other long term (current) drug therapy; Z79.891 Long term (current) use of opiate analgesic
CPT/HCPCS: 36415; 80053; 85025; 87040; 96372; 99283; J0696; J1170; J1200